=== PATIENT | female | born 1980 | race Caucasian/White ===

== ENCOUNTER 2018-01-27 20:53 | Emergency (ER) | payer OTHER ==
[2018-01-27 21:09] LABS: URINE HCG POC HCG NEGATIVE (Negative)
[2018-01-27 21:42] LABS: POC GLUCOSE 143 mg/dL (70-99)
[2018-01-27] MEDS: IPRATRPIUM/ALBUTEROL 0.5/2.5MG 3 ML NEBU. NEB (21:43)
[2018-01-27] MEDS: DEXAMETHASONE SOD PHOS 20 MG/5 ML VIAL. IM (22:07)
== END 2018-01-27 22:30 | disposition home or self-care (01) ==
LOC: ER 20:53
DX: J44.1 Chronic obstructive pulmonary disease with (acute) exacerbation (principal); J06.9 Acute upper respiratory infection, unspecified; E78.1 Pure hyperglyceridemia; E11.9 Type 2 diabetes mellitus without complications; Z88.4 Allergy status to anesthetic agent; Z88.5 Allergy status to narcotic agent; Z91.018 Allergy to other foods
CPT/HCPCS: 71046; 81025; 82962; 93005; 94640; 96372; 99285-25; J1100; J7620

== ENCOUNTER 2018-09-15 11:59 | Emergency (ER) | payer OTHER ==
[~2018-09-15] VITALS: Ht 167.6 cm; Wt 88.0 kg
[~2018-09-15 11:59] MED LIST: BUDE10.2 IH; PRED-220 PO
[2018-09-15] MEDS ORDERED: predniSONE 20 MG TABLET PO ONE (12:30)
[2018-09-15] MEDS ORDERED: IPRATRPIUM/ALBUTEROL 0.5/2.5MG 3 ML NEBU. NEB ONE (12:30)
--- NOTE | 2018-09-15 12:56 | RAD ---
CHEST PA LATERAL dated 09/15/2018 12:49 PM. Comparison: 01/27/2018 Clinical Indication: COUGH, SOA. Findings: PA and lateral views of the chest were obtained. Heart and mediastinal contours within normal limits. Lungs are clear without focal consolidation. Vascular interstitium within normal limits. No pleural effusion or pneumothorax. Impression: No acute radiographic abnormality. Electronically signed by: Nish Ward MD (09/15/2018 12:53 PM) [id number]
[2018-09-15] MEDS ORDERED: PRED50TA PO (13:31)
[2018-09-15] MEDS ORDERED: BENZ100C PO (13:31)
[2018-09-15] MEDS ORDERED: VENTOLIN HFA18 GM INH (13:31)
--- NOTE | 2018-09-15 13:31 | PHYS DOC ---
Past Medical History Past Medical History: COPD, Diabetes-Type II, Other Additional Past Medical Histor: HIGH TRIGLYCERIDES Past Surgical History: Cholecystectomy Additional Past Surgical Histo: LEFT BREAST BIOPSY, BUNYUNECTOMY, TFCC RIGHT WRIST Alcohol Use: Occasionally Drug Use: None Adult General Chief Complaint Chief Complaint: COUGH HPI HPI Patient is a 38 year old female with a history of COPD currently not smoking, diabetes type 2, who presents today with a productive cough for the last 4 days. Patient denies any fever. Denies any chest pain or shortness of breath. Review of Systems Review of Systems Constitutional: Denies fever or chills [] Eyes: Denies change in visual acuity, redness, or eye pain [] HENT: Denies nasal congestion or sore throat [] Respiratory: Reports cough, denies shortness of breath [] Cardiovascular: No additional information not addressed in HPI [] GI: Denies abdominal pain, nausea, vomiting, bloody stools or diarrhea [] : Denies dysuria or hematuria [] Musculoskeletal: Denies back pain or joint pain [] Integument: Denies rash or skin lesions [] Neurologic: Denies headache, focal weakness or sensory changes [] All other systems were reviewed and found to be within normal limits, except as documented in this note. Current Medications Current Medications Current Medications Medications (Trade) Dose Ordered Sig/Alden Start Time Stop Time Status Last Admin Dose Admin Albuterol/ Ipratropium (Duoneb) 3 ml 1X ONCE 09/15/18 12:30 09/15/18 12:31 DC 09/15/18 12:43 3 ML Prednisone (Prednisone) 60 mg 1X ONCE 09/15/18 12:30 09/15/18 12:31 DC 09/15/18 12:53 60 MG Allergies Allergies Allergies Coded Allergies Type Severity Reaction Last Updated Verified fentanyl Allergy Intermediate HIVES 01/27/18 Yes hydrocodone Allergy Intermediate HIVES 01/27/18 Yes pomegranate Allergy Intermediate HIVES 01/27/18 Yes strawberry Allergy Intermediate HIVES 01/27/18 Yes Physical Exam Physical Exam Constitutional: Well developed, well nourished, no acute distress, non-toxic appearance. [] HENT: Normocephalic, atraumatic, bilateral external ears normal, oropharynx moist, no oral exudates, nose normal. [] Eyes: PERRLA, EOMI, conjunctiva normal, no discharge. [] Neck: Normal range of motion, no tenderness, supple, no stridor. [] Cardiovascular:Heart rate regular rhythm, no murmur [] Lungs & Thorax: Bilateral breath sounds clear to auscultation [] Abdomen: Bowel sounds normal, soft, no tenderness, no masses, no pulsatile masses. [] Skin: Warm, dry, no erythema, no rash. [] Back: No tenderness, no CVA tenderness. [] Extremities: No tenderness, no cyanosis, no clubbing, ROM intact, no edema. [] Neurologic: Alert and oriented X 3, normal motor function, normal sensory function, no focal deficits noted. [] Psychologic: Affect normal, judgement normal, mood normal. [] Current Patient Data Vital Signs Vital Signs Date Time Temp Pulse Resp B/P (MAP) Pulse Ox O2 Delivery O2 Flow Rate FiO2 09/15/18 12:45 Room Air 09/15/18 12:35 98.1 82 22 117/66 (83) 99 98.1 EKG EKG [] Radiology/Procedures Radiology/Procedures []PROCEDURE: CHEST PA & LATERAL CHEST PA LATERAL dated 09/15/2018 12:49 PM. Comparison: 01/27/2018 Clinical Indication: COUGH, SOA. Findings: PA and lateral views of the chest were obtained. Heart and mediastinal contours within normal limits. Lungs are clear without focal consolidation. Vascular interstitium within normal limits. No pleural effusion or pneumothorax. Impression: No acute radiographic abnormality. Electronically signed by: Nish Ward MD (09/15/2018 12:53 PM) [id number] DICTATED and SIGNED BY: NISH WARD MD DATE: 09/15/18 1252 Course & Med Decision Making Course & Med Decision Making Pertinent Labs and Imaging studies reviewed. (See chart for details) This is a 38-year-old. Patient presenting to the ED today with symptoms consistent of COPD exacerbation. Currently not smoking. Chest x-ray interpreted by radiologist is negative for any acute findings. Patient will be discharged with albuterol inhaler prednisone and Tessalon Perles. Follow-up with PCP in 1- 2 weeks. Dragon Disclaimer Dragon Disclaimer This electronic medical record was generated, in whole or in part, using a voice recognition dictation system. Departure Departure Impression: Primary Impression: COPD exacerbation Disposition: HOME, SELF-CARE Condition: STABLE Referrals: UNKNOWN PCP NAME (PCP) Follow-up with your doctor in 1-2 weeks Patient Instructions: Chronic Obstructive Pulmonary Disease Exacerbation Additional Instructions: You were evaluated in the emergency room with symptoms consistent of COPD exacerbation. Congratulations for smoking cessation, please keep up the good job not smoking. Use the prescribed medications as ordered. Follow-up with your doctor in 1-2 weeks. Scripts Albuterol Sulfate (VENTOLIN HFA INHALER) 18 Gm Hfa.aer.ad 2 PUFF INH Q4HRS for FOR ASTHMA, #1 INHALER 0 Refills Prov: ED BUSTAMANTE APRN 09/15/18 Benzonatate (TESSALON PERLE) 100 Mg Capsule 1 CAP PO TID, #30 CAP Prov: ED BUSTAMANTE APRN 09/15/18 Prednisone (PREDNISONE) 50 Mg Tablet 1 TAB PO DAILY, #5 TAB Prov: ED BUSTAMANTE APRN 09/15/18 ED BUSTAMANTE APRN Sep 15, 2018 13:31
[2018-09-15 13:46] VITALS: BP 144/72
== END 2018-09-15 13:46 | disposition home or self-care (01) ==
LOC: ER 11:59
DX: J44.1 Chronic obstructive pulmonary disease with (acute) exacerbation (principal); E11.9 Type 2 diabetes mellitus without complications; Z88.4 Allergy status to anesthetic agent; Z88.5 Allergy status to narcotic agent; Z91.018 Allergy to other foods
CPT/HCPCS: 71046; 94640; 99284; J7512; J7620